=== PATIENT | male | born 1985 | race Caucasian/White ===

== ENCOUNTER 2018-12-13 03:16 | Emergency (ER) | payer SELFPAY ==
[~2018-12-13] VITALS: Ht 167.6 cm; Wt 70.3 kg
[2018-12-13 03:34] VITALS: Ht 167.6 cm; Wt 70.3 kg
--- NOTE | 2018-12-13 04:58 | ERD ---
ER Documentation Chief Complaint Chief Complaint generalize body rash/itch x 3 days. has hx of eczema HPI 33-year-old male, with history of eczema, presents the emergency department, complaining of acute exacerbation of generalized erythema, associated with constant pruritus and dry skin. The patient states that the disease the worst exacerbation and he is concerned about HIV or syphilis because of recent unprotected intercourse. ROS All systems reviewed and are negative except as per history of present illness. Medications Home Meds Active Scripts Triamcinolone Acetonide (Triamcinolone Acetonide) 0.1% - 60 Ml Lotion, 1 APPLIC TOP BID, #1 BOTTLE Prov:KATHRYN SHETH MD 12/13/18 Prednisone* (Prednisone*) 20 Mg Tab, 60 MG PO DAILY for 5 Days, TAB Prov:KATHRYN SHETH MD 12/13/18 Allergies Allergies: Coded Allergies: No Known Drug Allergies (Verified Allergy, Unknown, 12/13/18) PMhx/Soc Medical and Surgical Hx: pt denies Medical Hx, pt denies Surgical Hx FmHx Family History: No diabetes, No coronary disease Physical Exam Vitals Vital Signs Date Temp Pulse Resp B/P (MAP) Pulse Ox O2 O2 Flow FiO2 Time Delivery Rate 12/13/18 98.0 68 18 123/63 97 Room Air 08:35 (83) 12/13/18 97.8 70 18 121/56 99 03:34 (77) Physical Exam Const: No acute distress Head: Atraumatic Eyes: Normal Conjunctiva ENT: Normal External Ears, Nose and Mouth. Neck: Full range of motion. No meningismus. Resp: Clear to auscultation bilaterally Cardio: Regular rate and rhythm, no murmurs Abd: Soft, non tender, non distended. Normal bowel sounds Skin: Generalized xeroderma, with multiple erythematous, hypertrophic plaques worse in the flexor areas like neck wrist and antecubital fossa Back: No midline or flank tenderness Ext: No cyanosis, or edema Neur: Awake and alert Psych: Normal Mood and Affect Result Diagram: 12/13/18 0527 12/13/18 0526 Results 24 hrs Laboratory Tests Test 12/13/18 05:26 12/13/18 05:27 Sodium Level 144 mmol/L Potassium Level 4.2 mmol/L Chloride Level 109 mmol/L Carbon Dioxide Level 30 mmol/L Anion Gap 5 Blood Urea Nitrogen 17 mg/dl Creatinine 1.11 mg/dl Est Glomerular Filtrat Rate mL/min > 60 mL/min Glucose Level 84 mg/dl Calcium Level 9.5 mg/dl Total Bilirubin 0.3 mg/dl Direct Bilirubin 0.00 mg/dl Indirect Bilirubin 0.3 mg/dl Aspartate Amino Transf (AST/SGOT) 43 IU/L Alanine Aminotransferase (ALT/SGPT) 43 IU/L Alkaline Phosphatase 47 IU/L Total Protein 7.5 g/dl Albumin 4.2 g/dl Globulin 3.30 g/dl Albumin/Globulin Ratio 1.27 Rapid Plasma Reagin NONREACTIVE HIV (1&2) Antibody NEGATIVE White Blood Count 10.0 10^3/ul Red Blood Count 4.74 10^6/ul Hemoglobin 14.4 g/dl Hematocrit 43.0 % Mean Corpuscular Volume 90.7 fl Mean Corpuscular Hemoglobin 30.4 pg Mean Corpuscular Hemoglobin Concent 33.5 g/dl Red Cell Distribution Width 12.8 % Platelet Count 234 10^3/UL Mean Platelet Volume 10.6 fl Immature Granulocytes % 0.300 % Neutrophils % 69.5 % Lymphocytes % 21.4 % Monocytes % 7.6 % Eosinophils % 0.8 % Basophils % 0.4 % Nucleated Red Blood Cells % 0.0 /100WBC Immature Granulocytes # 0.030 10^3/ul Neutrophils # 7.0 10^3/ul Lymphocytes # 2.1 10^3/ul Monocytes # 0.8 10^3/ul Eosinophils # 0.1 10^3/ul Basophils # 0.0 10^3/ul Nucleated Red Blood Cells # 0.0 10^3/ul Current Medications Medications Dose Sig/Shorty Start Time Status Last (Trade) Ordered Route PRN Stop Time Admin Dose Reason Admin Ibuprofen 600 mg ONCE ONCE 12/13/18 DC 12/13/18 (Motrin) PO 06:00 05:39 12/13/18 06:01 Procedures/MDM Differential diagnosis include but not limited to: Viral exanthema, seborrheic dermatitis, scabies, acute allergic reaction, medication side effect. low suspicion for systemic infectious process, angioedema, anaphylactic shock. Physical examination and clinical presentation consistent most likely with severe eczema. Results and clinical impression discussed with the patient who agree with management. The patient is stable to be treated outpatient and will be discharged home. Some side effects of prescribed medications (skin atrophy, nausea, vomiting, diarrhea, interactions with other medications) were reviewed. The patient was instructed to follow up with the primary care provider in the next 48h. If symptoms persist, worsen or new symptoms develop, then patient should return to the ED immediately. Instructions explained and given directly by me with acknowledgment and demonstrated understanding. Disclaimer: Inadvertent spelling and grammatical errors are likely due to EHR/dictation software use and do not reflect on the overall quality of patient care. Also, please note that the electronic time recorded on this note does not necessarily reflect the actual time of the patient encounter. Departure Diagnosis: Primary Impression: Eczema Condition: Stable Additional Instructions: Thank you very much for allowing us to participate in your care. Your health and safety is our top priority at [facility]. The evaluation in the emergency department has been done to rule out an acute emergency, therefore, chronic conditions like malignancy or other diseases have not been evaluated; therefore, you need to follow up with a primary care provider in the next 48h. If symptoms persist, worsen or new symptoms develop, then patient should return to the ED immediately. Call your primary care doctor TOMORROW for an appointment during the next 2-4 days and bring all the information provided. Have prescriptions filled and follow precisely the directions on the label. If the symptoms get worse and your provider is unavailable, return to the Emergency Department immediately. KATHRYN SHETH MD December 13, 2018 04:58
[2018-12-13] MEDS ORDERED: TR1B60 TOP (05:59)
[2018-12-13] MEDS ORDERED: PRED20TA PO (05:59)
[2018-12-13] MEDS ORDERED: IBUPROFEN 600 MG TAB PO ONE (06:00)
[2018-12-13 08:35] VITALS: BP 123/63; PULSE 68; RESP 18
== END 2018-12-13 08:36 | disposition home or self-care (01) ==
LOC: FTE 03:16
DX: L30.9 Dermatitis, unspecified (principal)
CPT/HCPCS: 80053; 85025; 86592; 86703; 99283